=== PATIENT | male | born 1960 | race African-American/Black ===

== ENCOUNTER 2021-08-05 02:55 | Emergency (ER) | payer MEDICAID ==
[~2021-08-05] VITALS: Ht 182.9 cm; Wt 118.0 kg
[2021-08-05] MEDS ORDERED: ACETAMINOPHEN 325MG TABLET PO ONE (08:30)
[2021-08-05] MEDS ORDERED: TOPUD PO (11:29)
[2021-08-05 11:50] VITALS: BP 162/100
== END 2021-08-05 12:11 | disposition home or self-care (01) ==
LOC: ER 02:55
DX: M17.11 Unilateral primary osteoarthritis, right knee (principal); R07.81 Pleurodynia
CPT/HCPCS: 71100; 73552; 73560; 99284; Z7610